=== PATIENT | female | born 1965 | race Caucasian/White ===

== ENCOUNTER 2016-11-11 06:33 | Emergency (ER) | payer OTHER ==
--- NOTE | ~2016-11-11 | EKG ---
PATIENT: OLEG MCCLURE UNIT #: [id number] Ventricular Rate: 60 BPM Atrial Rate: 60 BPM P-R Interval: 126 ms QRS Duration: 84 ms Q-T Interval: 420 ms QTC Calculation(Bezet): 420 ms P [place]: 56 degrees Calculated R [place]: 48 degrees Calculated T [place]: 26 degrees Diagnosis Line: Normal sinus rhythm Diagnosis Line: Normal ECG Diagnosis Line: When compared with ECG of 21-APR-2016 20:53, Diagnosis Line: No significant change was found Diagnosis Line: Confirmed by THANIA JUNG MD ([id number]) on Diagnosis Line: 11/11/2016 1:34:02 PM INTERPRETING MD: ERICH SANDS
--- NOTE | ~2016-11-11 | CT2 ---
[facility] A Service of [facility] RADIOLOGY TEXT RESULTS PATIENT: OLEG MCCLURE LOCATION: [facility] UN[facility] : 65 UNIT #: [id number] AGE: [address]: Denny Barrera MD SEX: F ORDER DR: [id number] [facility] [address] [place], [place] [address] [id number] MR#: [id number] Acc #: [id number] NAME: OLEG MCCLURE : 1965 SEX: F STUDY DATE/TIME: 11/11/2016 9:04 UNIT: [facility] ROOM: STUDY DESCRIPTION: CT Abd and Pelv W Cont Attending Physician: Denny Barrera M.D. Ordering Physician: Denny Barrera M.D. Primary Care Physician: Misty Barboza M.D. MEDICAL IMAGING REPORT This report is preliminary unless electronic signature is present EXAM CT abdomen and pelvis with contrast INDICATION Right lower quadrant abdominal pain and vomiting for the past 2 days. PROCEDURE Contrast-enhanced CT of the abdomen and pelvis. This CT exam was performed with one or more of the following radiation dose reduction techniques: automatic exposure control, adjustment of mA and/or kV according to patient size, and iterative reconstruction. COMPARISON None FINDINGS ABDOMEN WITH CONTRAST: There is a 9.0 mm nodule in the right lower lobe just above the diaphragm. Liver enlarged measuring 22.7 cm. Spleen enlarged measuring 13.4 cm. 2.0-3.0 mm nonobstructing calculus in the left kidney. 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 The adrenal glands and pancreas are unremarkable. There are small stones layering dependently in the gallbladder but no evidence for inflammation. Bowel loops are nondilated. Moderate colonic stool burden. Appendix is normal. PELVIS WITH CONTRAST: IUD in place. No pelvic mass. No aggressive appearing bone lesion. IMPRESSION [facility] A Service of [facility] RADIOLOGY TEXT RESULTS PATIENT: OLEG MCCLURE LOCATION: [facility] UN[facility] : 65 UNIT #: [id number] AGE: [address]: Denny Barrera MD SEX: F ORDER DR: 1. No clearly acute finding. 2. Hepatosplenomegaly. 3. Not mentioned above there is a small umbilical hernia that measures approximately 1.6 cm in diameter and contains a small amount of fat. 4. 9.0 mm nodule in the right lower lobe. This nodule is unchanged from a CTA of the chest performed on 04/21/2016 and is unchanged from a previous chest CT performed on 05/03/2014, in keeping with benign finding. Dictated by... Adrien Cerrato M.D. THIS IS AN ELECTRONICALLY VERIFIED REPORT Adrien Cerrato M.D. at 11/12/2016 3:28 PM Carmen TD: 11/11/2016 09:52 JOB #: [id number] MEDICAL IMAGING REPORT Page 1 of 1 COPY
[~2016-11-11 06:33] MED LIST: ACETAMINOPHEN PR; ALBUTEROL17 G1 IH; ALBUTEROL17 GM INH; ALBUTEROL20 ml INH; AMARYL PO; AMARYL1 MG PO; ASPIRIN PO; BACTRIM DS TABL1 TA1 PO; BENZONATATE PO; BIRTH CONTROL PILL PO; CODEINE30 MG PO; DARVOCET-N 1001 TAB PO; ECOTRIN325 MG; FLAGYL PO; FLEXERIL; FLEXERIL PO; JANUVIA PO; LORTAB 5/500 TA1 TA1 PO; MELOXICAM15 MG PO; PHENERGAN PO; PRAVASTATIN SOD10 MG PO; PREDNISONE PO; PROMETHAZINE D118 ML PO; STEROID INJECTIONS; TRAMADOL HCL50 M2 PO; ULTRAM PO; VIBRAMYCIN100 M1 PO; ZITHROMAX PO
[2016-11-11 07:18] LABS: BASOPHIL% 0.2 % (0-2.5); DIFF IND NO; EOSINOPHIL# 0.1 X10e3 (0-0.7); EOSINOPHIL% 0.9 % (0.0-7.0); HEMOGLOBIN 14.6 gm/dL (12.0-16.0); LYMPHOCYTE# 0.7 X10e3 (1.0-3.5); LYMPHOCYTE% 7.5 % (17.0-45.0); MEAN CELL VOLUME 86.2 FL (83-96); MEAN CORPUSCULAR HEMOGLOBIN 29.9 PG (28-34); MEAN CORPUSCULAR HGB CONC 34.7 g/dL (30-36); MEAN PLATELET VOLUME 9.6 FL (6.5-11.5); MONOCYTE# 0.3 X10e3 (0-1.0); MONOCYTE% 3.5 % (3.0-12.0); NEUTROPHIL# 8.2 X10e3 (1.5-7.1); NEUTROPHIL% 87.9 % (40-75); PLATELET COUNT 116 X10e3 (140-420); RED BLOOD COUNT 4.87 X10e (3.90-5.30); RED CELL DISTRIBUTION WIDTH 12.6 % (11.0-15.5); WHITE BLOOD COUNT 9.3 X10e3 (4.0-10.5)
[2016-11-11 08:00] LABS: URINE SOURCE CLEAN CATCH
[2016-11-11 08:04] LABS: ALBUMIN SERUM 4.2 g/dL (3.5-5.0); BILIRUBIN, DIRECT 0.1 mg/dL (0.0-0.2); BILIRUBIN,INDIRECT 0.7 mg/dL (0.0-0.9); BILIRUBIN,TOTAL 0.8 mg/dL (0.2-2.0); CALCIUM SERUM 9.1 mg/dL (8.4-10.2); CREATININE SERUM 0.5 mg/dL (0.6-1.4); GLOM FILT RATE Estimated 112.1 mL/min (>60); POTASSIUM 4.1 mmol/L (3.5-5.1); PROTEIN TOTAL SERUM 7.1 g/dL (6.0-8.3)
[2016-11-11 08:09] LABS: URINE APPEARANCE CLEAR; URINE BILIRUBIN NEG (NEG); URINE BLOOD NEG (NEG); URINE COLOR YELLOW; URINE GLUCOSE >1000 MG/DL (NEG); URINE KETONE NEG (NEG); URINE LEUKOCYTE ESTERASE NEG (NEG); URINE NITRATE NEG (NEG); URINE PROTEIN NEG (NEG); URINE SPECIFIC GRAVITY 1.033 (1.003-1.035); URINE UROBILINOGEN 0.2 MG/DL (NEG)
[2016-11-11 08:11] LABS: POC - TROPONIN <0.05 ng/mL (<=0.05)
[2016-11-11 08:15] LABS: CULTURE INDICATED? NO
== END 2016-11-11 10:10 | disposition home or self-care (01) ==
LOC: CED 06:33
PROVIDERS: Emergency Medicine
DX: R10.31 Right lower quadrant pain (principal); R11.2 Nausea with vomiting, unspecified; K21.9 Gastro-esophageal reflux disease without esophagitis; J45.909 Unspecified asthma, uncomplicated; Z79.82 Long term (current) use of aspirin; Z79.899 Other long term (current) drug therapy; Z88.5 Allergy status to narcotic agent; Z88.6 Allergy status to analgesic agent; Z91.040 Latex allergy status; Z88.8 Allergy status to other drugs, medicaments and biological substances
CPT/HCPCS: 36415; 74177; 80048; 80076; 81003; 82553; 83690; 84484; 85025; 93005; 96374; 99284; J2270; J2405; Q9967